=== PATIENT | male | born 1990 | race Two or more races ===

== ENCOUNTER 2018-04-03 14:55 | Emergency (ER) | payer SELFPAY ==
[~2018-04-03] VITALS: Ht 180.3 cm; Wt 74.8 kg
[2018-04-03 14:58] VITALS: BP 168/88
[2018-04-03] MEDS ORDERED: LIDOCAINE 1% (LOCAL ANESTH.) PF 5ml SDV ONE (15:08)
[2018-04-03] MEDS ORDERED: LIDOCAINE 1% HCL (LOCAL ANESTH.) INJ 20ML MDV IJ ONE (15:15)
[2018-04-03] MEDS ORDERED: TETANUS-DIPTH-ACEL PERTUSSIS 0.5ML SYRG IM ONE (15:30)
== END 2018-04-03 15:39 | disposition home or self-care (01) ==
LOC: ER 14:58
DX: S51.812A Laceration without foreign body of left forearm, initial encounter (principal); F17.210 Nicotine dependence, cigarettes, uncomplicated; W26.0XXA Contact with knife, initial encounter; Y93.89 Activity, other specified; Y92.89 Other specified places as the place of occurrence of the external cause; Y99.8 Other external cause status
CPT/HCPCS: 12002; 90471; 90715